=== PATIENT | female | born 1970 | race Hispanic/Latino ===

== ENCOUNTER 2018-05-14 09:10 | Outpatient (CLI) | payer OTHER ==
--- NOTE | 2018-05-14 10:57 | ULT ---
RIGHT LOWER EXTREMITY VENOUS DOPPLER WITH SPECTRAL ANALYSIS WITH COLOR FLOW EVALUATION: DATE: 05/14/18. HISTORY: Right lower extremity edema. FINDINGS: Barrow scale, color flow, Doppler evaluation, and spectral analysis of the right lower extremity venous structures is performed with 2D imaging. The right lower extremity, common femoral, superficial fem oral, popliteal, posterior tibial, most proximal greater saphenous and profunda femoral veins are aishwarya ged. There is normal lumen compression, flow, and augmentation of the visualized deep venous structures of the right lower extremity. There is subcutaneous edema seen at the level of the right ankle. There are a few nonspecific nonenl arged right inguinal lymph nodes seen. IMPRESSION: 1. No evidence of a deep vein thrombosis involving the visualized deep venous structures of the righ t lower extremity. 2. Mild subcutaneous edema at the level of the right ankle. POS: [facility]
== END 2018-05-14 09:11 | disposition home or self-care (01) ==
LOC: SCSULT 09:10
PROVIDERS: ATTEND Family Medicine
DX: R60.0 Localized edema (principal)

== ENCOUNTER 2021-01-25 23:58 | Inpatient (IN) | payer BC ==
[2021-01-26 01:43] LABS: SARS-CoV-2 NAA Rapid Test Not Detected (NotDetected)
[2021-01-26] MEDS ORDERED: Dextrose 5% in Water 1,000 ML IV PRN (02:57)
[2021-01-26] MEDS ORDERED: Ondansetron ODT 4 MG TAB PO PRN (02:57)
[2021-01-26] MEDS ORDERED: HumaLOG 300 UNITS/3 ML VIAL SC PRN (02:57)
[2021-01-26] MEDS ORDERED: Dextrose 50% Abboject 50 ML SYRINGE SLOW IVP PRN (02:57)
[2021-01-26] MEDS: Ibuprofen 200 MG TAB PO PRN ×3 (03:13→20:09)
[2021-01-26 03:19] VITALS: BMI 57.4
[2021-01-26 05:51] LABS: Band 14 % (5-11); Eosinophils 5 % (0-10); Hemoglobin 7.5 g/dL (12.0-16.0); Lymphocytes 9 % (21-51); MDiff Complete? YES; Mean Corpuscular HGB CONC 32.3 g/dL (32.0-36.0); Mean Corpuscular Hemoglobin 24.9 pg (27.0-31.0); Mean Corpuscular Volume 77.1 fL (78.0-98.0); Monocytes 12 % (0-10); Neutrophil 60 % (42-75); Platelet Count 200 thou/uL (130-400); Platelet Morphology Comment Appears Adequate; RBC Distribution Width 15.3 % (11.5-14.5); Red Blood Cell (RBC) Count 3.02 mill/uL (4.20-5.40); White Blood Cell (WBC) Count 10.5 thou/uL (4.8-10.8)
[2021-01-26 06:01] LABS: Anion Gap 10 mmol/L (10-20); BUN (Urea Nitrogen) 9 mg/dL (7.0-18.7); Calc. Creatinine Clearance 248 mL/min (70-130); Calcium 8.1 mg/dL (7.8-10.44); Carbon Dioxide 22 mmol/L (22-29); Chloride 107 mmol/L (98-107); Glucose 142 mg/dL (70-105); Iron 11 ug/dL (50-170); Iron Binding Capacity, Total 368 mcg/dL (265-497); Potassium 3.8 mmol/L (3.5-5.1); Sodium 135 mmol/L (136-145)
[2021-01-26 08:59] LABS: Reticulocyte Count 1.7 % (0.5-1.5)
[2021-01-26] MEDS: Ferrous Sulfate 325 MG TAB PO SCH (08:59)
[2021-01-26] MEDS: Acetaminophen 325 MG TAB PO PRN ×2 (08:59→18:01)
[2021-01-26] MEDS ORDERED: Cefepime 2 GM in Sodium Chloride 0.9% 100 ML IVPB SCH (09:00)
[2021-01-26] MEDS: Enoxaparin Sodium 40 MG/0.4 ML SYRINGE SC SCH (09:00)
[2021-01-26] MEDS: Lisinopril 20 MG TAB PO SCH (09:04)
[2021-01-26] MEDS: Hydrochlorothiazide 25 MG TAB PO SCH (09:05)
[2021-01-26] MEDS: VANCOMYCIN 2 GRAM/400 ML BAG 2 GM in Premix Bag 1 BAG IVPB SCH ×2 (09:07→21:34)
[2021-01-26] MEDS: metFORMIN XR 500 MG TAB PO SCH ×2 (09:43→20:08)
[2021-01-26] MEDS ORDERED: Iron, Sodium Ferric Gluconate 250 MG in Sodium Chloride 0.9% 100 ML IVPB SCH (13:30)
[2021-01-26 16:14] LABS: Bacteria/HPF None Seen HPF (None Seen); Bilirubin Negative (Negative); Blood, Urine 3+ (Negative); Clarity Turbid (Clear); Glucose, Urine (Dipstick) Normal (Negative); Ketone, Urine Negative (Negative); Leukocyte Negative Leu/uL (Negative); Nitrite Negative (Negative); Protein, Urine (Dipstick) 70 mg/dL (Neg-Trace); RBC/HPF 21-50 HPF (0-3); Urobilinogen 6 mg/dL (Less than 2); WBC/HPF 0-3 HPF (0-3); pH, Urine 5.5 (5.0-9.0)
[2021-01-26 16:17] LABS: Urine Culture Reflex No No
[2021-01-27] MEDS: Acetaminophen 325 MG TAB PO PRN ×3 (02:27→18:18)
[2021-01-27 06:23] LABS: #Eosinphils 0.5 thou/uL (0.0-0.7); #Lymphocytes 1.4 thou/uL (1.20-3.40); #Monocytes 0.9 thou/uL (0.11-0.59); #Neutrophils 6.7 thou/uL (1.40-6.50); %Basophils 0.1 % (0.0-1.0); %Eosinophils 5.4 % (0.0-10.0); %Lymphocytes 14.3 % (21.0-51.0); %Monocytes 9.5 % (0.0-10.0); %Neutrophils 70.6 % (42.0-75.0); Hemoglobin 7.7 g/dL (12.0-16.0); Mean Corpuscular HGB CONC 30.4 g/dL (32.0-36.0); Mean Corpuscular Hemoglobin 23.5 pg (27.0-31.0); Mean Corpuscular Volume 77.4 fL (78.0-98.0); Mean Platelet Volume 7.7 fL (7.4-10.4); Platelet Count 216 thou/uL (130-400); RBC Distribution Width 15.5 % (11.5-14.5); Red Blood Cell (RBC) Count 3.29 mill/uL (4.20-5.40); White Blood Cell (WBC) Count 9.5 thou/uL (4.8-10.8)
[2021-01-27 06:43] LABS: Anion Gap 13 mmol/L (10-20); BUN (Urea Nitrogen) 10 mg/dL (7.0-18.7); Calc. Creatinine Clearance 222 mL/min (70-130); Calcium 8.4 mg/dL (7.8-10.44); Carbon Dioxide 25 mmol/L (22-29); Chloride 106 mmol/L (98-107); Glucose 117 mg/dL (70-105); Potassium 3.8 mmol/L (3.5-5.1); Sodium 140 mmol/L (136-145)
[2021-01-27] MEDS: Ibuprofen 200 MG TAB PO PRN ×2 (08:45→20:17)
[2021-01-27] MEDS: Ferrous Sulfate 325 MG TAB PO SCH (08:45)
[2021-01-27] MEDS: Hydrochlorothiazide 25 MG TAB PO SCH (08:45)
[2021-01-27] MEDS: metFORMIN XR 500 MG TAB PO SCH ×2 (08:45→21:04)
[2021-01-27] MEDS: Enoxaparin Sodium 40 MG/0.4 ML SYRINGE SC SCH (08:46)
[2021-01-27] MEDS: Sulfameth/Trimethoprim DS 800-160mg TAB PO SCH ×2 (08:50→20:17)
[2021-01-27 09:28] LABS: Vancomycin, Trough 10.5 ug/mL
[2021-01-27 19:49] LABS: Hemoglobin 8.6 g/dL (12.0-16.0)
[2021-01-27] MEDS: Calcium Carbonate 500 MG ChewTAB PO PRN (23:41)
[2021-01-28 07:34] VITALS: BP 132/80; TEMP 97.7
[2021-01-28] MEDS: Lisinopril 20 MG TAB PO SCH (07:54)
[2021-01-28] MEDS: Hydrochlorothiazide 25 MG TAB PO SCH (07:54)
[2021-01-28] MEDS: Sulfameth/Trimethoprim DS 800-160mg TAB PO SCH (07:54)
[2021-01-28] MEDS: metFORMIN XR 500 MG TAB PO SCH (07:54)
[2021-01-28] MEDS: Acetaminophen 325 MG TAB PO PRN (07:55)
[2021-01-28] MEDS: Enoxaparin Sodium 40 MG/0.4 ML SYRINGE SC SCH (07:56)
[2021-01-28] MEDS: Ferrous Sulfate 325 MG TAB PO SCH (07:57)
[2021-01-28] MEDS: Calcium Carbonate 500 MG ChewTAB PO PRN (08:28)
[2021-01-28] MEDS: Ibuprofen 200 MG TAB PO PRN (09:51)
== END 2021-01-28 11:58 | disposition home or self-care (01) | DRG 872 ==
LOC: ERS 23:58 → T4-B 01-26 00:45
PROVIDERS: ADMIT Family Medicine; ATTEND Family Medicine
DX: A41.9 Sepsis, unspecified organism (principal); L03.115 Cellulitis of right lower limb; E11.65 Type 2 diabetes mellitus with hyperglycemia; Z20.822 Contact with and (suspected) exposure to COVID-19; I10 Essential (primary) hypertension; D50.9 Iron deficiency anemia, unspecified; E66.9 Obesity, unspecified; M19.90 Unspecified osteoarthritis, unspecified site; Z68.43 Body mass index [BMI] 50.0-59.9, adult; Z90.710 Acquired absence of both cervix and uterus; Z79.84 Long term (current) use of oral hypoglycemic drugs; Z79.899 Other long term (current) drug therapy
CPT/HCPCS: 0240U; 36415; 36416; 36430; 80048; 80202; 81001; 82728; 83540; 83550; 85025; 85046; 85060; 86850; 86900; 86901; J1650; J1815; J2916; J3370; J3490; P9016